=== PATIENT | female | born 1950 | race Asian ===

== ENCOUNTER 2018-08-04 07:24 | Emergency (ER) | payer OTHER ==
[~2018-08-04] VITALS: Ht 154.9 cm; Wt 58.2 kg
[~2018-08-04 07:24] MED LIST: IBUP-1542 PO
[2018-08-04 07:25] VITALS: BP 149/76; PULSE 80; RESP 18; Ht 154.9 cm; Wt 58.2 kg
[2018-08-04] MEDS ORDERED: NAPR-985 PO (08:39)
--- NOTE | 2018-08-04 10:57 | ERD ---
ER Documentation Chief Complaint Chief Complaint right foot pain s/p trip & fall on floor, worse pain w/weight bearing HPI 68-year-old female presenting with right foot pain after trip and fall earlier today at work. She has pain distal to her ankle and has pain with weightbearing activities. Has not taken any medications for pain. Denies other medical problems. NKDA. Surgical history denies. Social history denies ROS All systems reviewed and are negative except as per history of present illness. Medications Home Meds Active Scripts Naproxen* (Naprosyn*) 500 Mg Tablet, 500 MG PO BID PRN for PAIN AND/OR INFLAMMATION, #30 TAB Prov:DEE JOHNSON PA-C 08/04/18 Ibuprofen* (Motrin*) 600 Mg Tab, 600 MG PO Q6H PRN for PAIN AND OR ELEVATED TEMP, #30 TAB Prov:BEVERLEY AUSTIN NP 03/26/16 Allergies Allergies: Coded Allergies: No Known Drug Allergies (Verified Allergy, Unknown, 03/25/16) PMhx/Soc History of Surgery: Yes ( left breast mastectomy, hysterectomy, 3c/section , sbo) Hx Cardiac Disorders: Yes (htn, aortic valve replacement) Hx Alcohol Use: No Hx Substance Use: No Hx Tobacco Use: No FmHx Family History: No diabetes, No coronary disease, No other Physical Exam Vitals Vital Signs Date Temp Pulse Resp B/P (MAP) Pulse Ox O2 O2 Flow FiO2 Time Delivery Rate 08/04/18 97.9 80 18 149/76 100 07:25 (100) Physical Exam GENERAL: The patient is well-appearing, well-nourished, in no acute distress HEENT: Atraumatic. Conjunctivae are pink. Pupils equal, round, and reactive to light. There is no scleral icterus. Tympanic membranes clear bilaterally. Oropharynx clear. CHEST: Clear to auscultation bilaterally. There are no rales, wheezes or rhonchi. HEART: Regular rate and rhythm. No murmurs, clicks, rubs or gallops. EXTREMITIES: Tender to palpation to the base of the fourth metatarsals. No tenderness of the base the fifth metatarsal. Normal flexion and extension and strength 5 out of 5. NEUROLOGIC: Alert and oriented. Cranial nerves II through XII intact. Motor strength in all 4 extremities with 5 out of 5 strength. Sensation grossly intact. SKIN: Bruising noted distal to the right ankle. No lacerations or abrasions. Procedures/MDM DIAGNOSTIC IMAGING REPORT Patient: CALE HUTCHISON : 1950 Age: 68 Sex: F MR #: [id number] [facility] #: [id number] DOS: 08/04/18 0740 Ordering MD: TIM JOHNSON PA-C Location: FTE Room/Bed: PROCEDURE: XR foot CLINICAL INDICATION: Foot pain TECHNIQUE: AP, oblique and lateral views of the right foot COMPARISON: CR FOOT 03/25/2016 FINDINGS: Borderline osteopenia. No displaced fracture identified. Mild hallux valgus and hypertrophic change of the first MTP joint. Small calcaneal spur at the origin of the plantar fascia and small calcaneal enthesophyte at the insertion of Achilles tendon. No significant soft tissue swelling. Vascular calcification. IMPRESSION: 1. No displaced fracture identified. Repeat radiographs in 7-10 days or cross- sectional imaging may be obtained if there is persistent pain or concern for fracture. 2. Mild hallux valgus and hypertrophic change of the first MTP joint overall similar to prior exam. 3. Small calcaneal spur at the origin of the plantar fascia and small calcaneal enthesophyte at the insertion of Achilles tendon. ER Course: Ortho shoe and crutches given ED. MDM: 68-year-old female presenting with pain to foot. I have low suspicion for acute fracture dislocation. I have low suspicion for neuro deficit. Patient is discharged with strict ER precautions and told to follow-up with primary care within 1 to 2 days for close evaluation. Patient has no findings consistent with tendon or ligament rupture. Patient is told if symptoms change or worsen to return immediately to the ER. All questions answered at discharge Departure Diagnosis: Primary Impression: Contusion, foot Condition: Stable Patient Instructions: Contusion, Foot Referrals: COMMUNITY CLINICS YOU HAVE RECEIVED A MEDICAL SCREENING EXAM AND THE RESULTS INDICATE THAT YOU DO NOT HAVE A CONDITION THAT REQUIRES URGENT TREATMENT IN THE EMERGENCY DEPARTMENT. FURTHER EVALUATION AND TREATMENT OF YOUR CONDITION CAN WAIT UNTIL YOU ARE SEEN IN YOUR DOCTORS OFFICE WITHIN THE NEXT 1-2 DAYS. IT IS YOUR RESPONSIBILITY TO MAKE AN APPOINTMENT FOR FOLOW-UP CARE. IF YOU HAVE A PRIMARY DOCTOR --you should call your primary doctor and schedule an appointment IF YOU DO NOT HAVE A PRIMARY DOCTOR YOU CAN CALL OUR PHYSICIAN REFERRAL HOTLINE AT IF YOU CAN NOT AFFORD TO SEE A PHYSICIAN YOU CAN CHOSE FROM THE FOLLOWING [facility]MERLY [facility] [address] [facility] [address] [facility] [address] [facility] [address] [facility] [address] [facility] [facility]. [address] Additional Instructions: FOLLOW UP WITH YOUR PRIMARY CARE PHYSICIAN TOMORROW.Return to this facility if you are not improving as expected. DEE JOHNSON PA-C Aug 04, 2018 10:57
== END 2018-08-04 09:43 | disposition home or self-care (01) ==
LOC: FTE 07:24
DX: S90.31XA Contusion of right foot, initial encounter (principal); I10 Essential (primary) hypertension; W01.0XXA Fall on same level from slipping, tripping and stumbling without subsequent striking against object, initial encounter; Y92.89 Other specified places as the place of occurrence of the external cause
CPT/HCPCS: 73630

== ENCOUNTER 2018-09-26 05:08 | Inpatient (IN) | payer BC, OTHER ==
[~2018-09-26] VITALS: Ht 147.3 cm; Wt 58.7 kg
[~2018-09-26 05:08] MED LIST changes: +NAPR-985 PO
[2018-09-26] MEDS ORDERED: morphine 4 MG/ML VIAL IV STA (05:16)
[2018-09-26] MEDS ORDERED: SOD CHLORIDE 0.9% 1,000 ML IV STA (05:16)
[2018-09-26] MEDS ORDERED: ONDANSETRON 4 MG INJ IV STA (05:16)
--- NOTE | 2018-09-26 05:51 | ERD ---
ER Documentation Chief Complaint Chief Complaint bib code green for n/v and abd. pain hx of small HPI This is a 68-year-old female with remote history of surgeries who has recurrent small bowel obstructions treated nonsurgically. Patient describes several days of abdominal pain, nausea and vomiting. The abdominal pain is diffuse, 8 out of 10. Associated nonbloody nonbilious emesis. This feels exactly similar to small bowel obstructions in the past. The patient has refused surgeries as she states that she is very anxious about the surgeries. She states that these usually get better with not eating for 2 days. She does not wish to be hospitalized. ROS All systems reviewed and are negative except as per history of present illness. Medications Home Meds Active Scripts Naproxen* (Naprosyn*) 500 Mg Tablet, 500 MG PO BID PRN for PAIN AND/OR INFLAMMATION, #30 TAB Prov:DEE JOHNSON PA-C 08/04/18 Ibuprofen* (Motrin*) 600 Mg Tab, 600 MG PO Q6H PRN for PAIN AND OR ELEVATED TEMP, #30 TAB Prov:BEVERLEY AUSTIN NP 03/26/16 Allergies Allergies: Coded Allergies: No Known Drug Allergies (Verified Allergy, Unknown, 03/25/16) PMhx/Soc History of Surgery: Yes ( left breast mastectomy, hysterectomy, 3c/section , sbo) Hx Cardiac Disorders: Yes (htn, aortic valve replacement) Hx Miscellaneous Medical Probl: Yes (SBO) Hx Alcohol Use: No Hx Substance Use: No Hx Tobacco Use: No Smoking Status: Current every day smoker FmHx Family History: No diabetes Physical Exam Vitals Vital Signs Date Temp Pulse Resp B/P (MAP) Pulse Ox O2 O2 Flow FiO2 Time Delivery Rate 09/26/18 98.7 89 19 134/84 100 05:11 (101) Physical Exam General: Dehydrated and uncomfortable appearing Head: Normocephalic, atraumatic. Eyes: Pupils equally reactive, EOM intact ENT: Moist mucous membranes Neck: Supple, no lymphadenopathy Respiratory: Lungs clear bilaterally, no distress Cardiovascular: RRR, no murmurs, rubs, or gallops Abdominal: Soft, mild generalized tenderness without true peritonitis : Deferred MSK: No edema, no unilateral swelling, 5/5 strength Neurologic: Alert and oriented, moving all extremities, normal speech, no focal weakness, no cerebellar signs Skin: No rash Psych: Normal mood Result Diagram: 09/26/18 0548 Results 24 hrs Laboratory Tests Test 09/26/18 05:48 09/26/18 05:53 White Blood Count 11.9 10^3/ul Red Blood Count 5.61 10^6/ul Hemoglobin 12.6 g/dl Hematocrit 42.0 % Mean Corpuscular Volume 74.9 fl Mean Corpuscular Hemoglobin 22.5 pg Mean Corpuscular Hemoglobin Concent 30.0 g/dl Red Cell Distribution Width 13.7 % Platelet Count 233 10^3/UL Mean Platelet Volume 11.7 fl Immature Granulocytes % 0.600 % Neutrophils % 86.5 % Lymphocytes % 7.5 % Monocytes % 5.0 % Eosinophils % 0.1 % Basophils % 0.3 % Nucleated Red Blood Cells % 0.0 /100WBC Immature Granulocytes # 0.070 10^3/ul Neutrophils # 10.3 10^3/ul Lymphocytes # 0.9 10^3/ul Monocytes # 0.6 10^3/ul Eosinophils # 0.0 10^3/ul Basophils # 0.0 10^3/ul Nucleated Red Blood Cells # 0.0 10^3/ul POC Venous Lactate 1.9 mmol/L Current Medications Medications Dose Sig/Parviz Start Time Status Last (Trade) Ordered Route PRN Stop Time Admin Dose Reason Admin Sodium 1,000 ml @ Q1H STAT 09/26/18 DC 09/26/18 Chloride 1,000 mls/hr IV 05:16 05:38 09/26/18 06:15 Morphine 4 mg ONCE STAT 09/26/18 DC Sulfate IV 05:16 (morphine) 09/26/18 05:18 Ondansetron 4 mg ONCE STAT 09/26/18 DC 09/26/18 HCl (Zofran IV 05:16 05:37 Inj) 09/26/18 05:18 Procedures/MDM EKG, MONITORS, & DIAGNOSTIC IMAGING: CT abdomen and pelvis: PENDING LAB INTERPRETATION: I reviewed the laboratory testing and it shows no evidence of acute process MEDICAL DECISION MAKING: Clinical exam is very consistent with dehydration and likely small bowel obstruction. The patient is very adamant about not having surgery. The patient understands that this may require surgical intervention. Patient is refusing NG tube. CT imaging would be appropriate. ER COURSE: * Lactic acid is reassuring. IV fluids and pain medication provided * Patient CT and chemistry profile is pending at the time of signout. Patient endorsed oncoming provider to follow-up on CT imaging and disposition the patient. CONSULTATION: None DISPOSITION PLAN: Pending CT and reevaluation Departure Diagnosis: Primary Impression: Abdominal pain Abdominal location: generalized Qualified Codes: R10.84 - Generalized abdominal pain Condition: Stable FRANCISCO GONZALEZ MD Sep 26, 2018 05:51
[2018-09-26] MEDS ORDERED: ACETAMINOPHEN 325 MG TAB PO PRN ×2 (08:30→12:00)
[2018-09-26] MEDS ORDERED: ONDANSETRON 4 MG INJ IV PRN (08:30)
[2018-09-26] MEDS ORDERED: LOSA50TA14 PO (09:05)
[2018-09-26] MEDS ORDERED: ATOR20TA38 PO (09:06)
[2018-09-26] MEDS ORDERED: FURO40TA4 PO (09:06)
[2018-09-26] MEDS ORDERED: CORE20CR PO (09:06)
[2018-09-26 09:10] VITALS: BP 149/68; PULSE 95; RESP 16
[2018-09-26 10:56] VITALS: Ht 147.3 cm; Wt 58.7 kg
--- NOTE | 2018-09-26 11:37 | HP ---
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 #Partial SBO - Vomiting and diarrhea. May also be complicated by acute gastroenteritis - History of multiple abdominal surgeries including exp lap - Supportive care: IV fluids, zofran - Will start clear liquids today at patient's request. 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 She has had multiple abdominal surgeries including an exp lap and does have a history of partial SBO causing similar symptoms, usually resolves spontaneously. She was in her usual state of health until yesterday afternoon. She ate some guava and blackberries and a few hours later developed chills, followed by cramping mid abdominal pain, nausea, nonbloody vomiting, and liquid diarrhea. Symptoms occurred rapidly and nearly simultaneously. She says guava has triggered this for her in the past. Last time she had an episode like this was a few months ago, but she did not go to the hospital. In the ED she was afebrile, pulse 80, BP 134/84, breathing 96% on room air. Labs unremarkable. CT done showing clustered dilated loops of stool-filled small bow el with mild bowel wall thickening and transition point in the central/RLQ. ROS She denies fever, weight loss, night sweats, anorexia headache, dizziness, vision changes, dysphagia, chest pain/pressure/palpitations, dyspnea, constipation, hematemesis, melena/hematochezia, dysuria, hematuria. PMH/Family/Social Past Medical History Dyslipidemia Hypertension Breast cancer s/p mastectomy and radiation therapy Aortic stenosis (thought to be from radiation therapy) s/p bovine valve replacement. Psoriasis (uses CBD oil) Medications Current Medications Ondansetron HCl (Zofran Inj) 4 mg BRIDGE ORDER PRN IV NAUSEA/VOMITING; Start 09/26/18 at 08:30; Stop 09/27/18 at 08:29 Acetaminophen (Tylenol Tab) 650 mg ER BRIDGE PRN PO .MILD PAIN 1-3 OR TEMP; Start 09/26/18 at 08:30; Stop 09/27/18 at 08:29 Coded Allergies: No Known Drug Allergies (Verified Allergy, Unknown, 09/26/18) Past Surgical History Aortic valve replacement (bovine) L breast mastectomy C sectionx3 Hysterectomy followed by exp lap for severe bleeding. Social History Alcohol Use: none Smoking Status: Never smoker Drug Use: none Exam/Review of Systems Vital Signs Vitals Vital Signs Date Temp Pulse Resp B/P (MAP) Pulse Ox O2 O2 Flow FiO2 Time Delivery Rate 09/26/18 98.1 95 16 149/68 97 Room Air 09:10 (95) Exam Exam Gen: Ill appearing woman nauseated, actively vomiting dark brown fluid. Eyes: PERRL HEENT: Moist mucous membranes, clear oropharynx Neck: Supple, no lymphadenopathy Card: Regular rate and rhythm. Late systolic ejection murmurs Pulm: Clear to auscultation bilaterally Abd: Soft, nontender, nondistended. Normoactive bowel sounds. No hepatosplenomegaly. Ext: No cyanosis/clubbing/edema. Strong peripheral pulses. Skin: psoriasis plaques without scaling on extensors surface of arms and back. WILLIAN WADE MD Sep 26, 2018 11:37
[2018-09-26] MEDS ORDERED: CARvedilol (CR) 20 MG CAP PO SCH (12:00)
[2018-09-26] MEDS ORDERED: NACL 0.9% 3 ML SYG IV SCH (12:00)
[2018-09-26] MEDS: SOD CHLORIDE 0.45% 1,000 ML IV SCH ×2 (12:17→22:26)
[2018-09-26] MEDS: LOSARTAN 50 MG TAB PO SCH (12:18)
[2018-09-26] MEDS: ONDANSETRON 4 MG INJ IV PRN ×2 (12:44→18:54)
[2018-09-26 14:00] VITALS: BP 128/58; RESP 17
[2018-09-26 20:22] VITALS: BP 129/58; PULSE 97; RESP 18
[2018-09-26] MEDS: ATORVASTATIN 20 MG TAB PO SCH (21:00)
[2018-09-27 02:00] VITALS: BP 135/60; PULSE 95; RESP 18
[2018-09-27] MEDS: ONDANSETRON 4 MG INJ IV PRN (04:05)
[2018-09-27] MEDS: SOD CHLORIDE 0.45% 1,000 ML IV SCH ×2 (07:55→16:08)
[2018-09-27 08:14] VITALS: BP 134/61; PULSE 72; RESP 18
[2018-09-27] MEDS ORDERED: CARvedilol (CR) 10 MG CAP PO SCH (09:00)
[2018-09-27] MEDS: LOSARTAN 50 MG TAB PO SCH (09:06)
[2018-09-27] MEDS: ASPIRIN 81 MG TAB PO SCH (09:06)
[2018-09-27 15:24] VITALS: BP 129/61; PULSE 90; RESP 18
--- NOTE | 2018-09-27 19:15 | PN ---
Date/Time of Note Date/Time of Note DATE: 09/27/18 TIME: 19:13 Assessment/Plan VTE Prophylaxis Risk score (from Ns)>0 risk: 3 SCD applied (from Ns): Yes SCD contraindicated: low risk/ambulating Pharmacological prophylaxis: NA/contraindicated Pharm contraindication: low risk/ambulating Lines/Catheters IV [facility] Type (from [facility] Peripheral IV Assessment/Plan Hospital Course Assessment and plan 1. Partial small bowel obstruction, stable resolving. Tolerating liquids advance diet 2. Likely adhesions. History of 3 sections, hysterectomy, exploratory laparotomy for with bleeding. 3. Diverticulosis? 4. Aortic valve replacement status 5. Hypertwnsion X. Dyslipidemia 7. History of breast cancer radiation possible cardiomyopathy 8. Anemia stable observe Subjective: Feels better wants to eat and go home Objective: Vital signs stable Is not No pallor icterus Regular Clear Bowel sounds diminished but present irritated no rigidity rebound guarding No edema Result Diagram: 09/27/181 09/27/181 Results 24hrs Laboratory Tests Test 09/27/18 04:41 White Blood Count 8.2 # Red Blood Count 4.77 Hemoglobin 10.8 L Hematocrit 35.0 L Mean Corpuscular Volume 73.4 L Mean Corpuscular Hemoglobin 22.6 L Mean Corpuscular Hemoglobin Concent 30.9 L Red Cell Distribution Width 13.3 Platelet Count 234 Mean Platelet Volume 12.5 H Immature Granulocytes % 0.400 Neutrophils % 77.0 Lymphocytes % 14.1 L Monocytes % 8.3 Eosinophils % 0.0 Basophils % 0.2 Nucleated Red Blood Cells % 0.0 Immature Granulocytes # 0.030 Neutrophils # 6.3 Lymphocytes # 1.2 Monocytes # 0.7 Eosinophils # 0.0 Basophils # 0.0 Nucleated Red Blood Cells # 0.0 Sodium Level 142 Potassium Level 3.4 L Chloride Level 102 Carbon Dioxide Level 29 Anion Gap 11 Blood Urea Nitrogen 12 Creatinine 0.84 Est Glomerular Filtrat Rate mL/min > 60 Glucose Level 106 Hemoglobin A1c 5.3 Calcium Level 8.8 Phosphorus Level 3.7 Magnesium Level 1.9 Total Bilirubin 1.0 Direct Bilirubin 0.00 Indirect Bilirubin 1.0 Aspartate Amino Transf (AST/SGOT) 22 Alanine Aminotransferase (ALT/SGPT) 21 Alkaline Phosphatase 49 Total Protein 6.4 # Albumin 3.3 Globulin 3.10 Albumin/Globulin Ratio 1.06 Exam/Review of Systems Exam Vitals Vital Signs Date Temp Pulse Resp B/P (MAP) Pulse Ox O2 O2 Flow FiO2 Time Delivery Rate 09/27/18 98.6 90 18 129/61 98 15:24 (83) 09/27/18 Room Air 02:00 Intake and Output 09/26/18 09/26/18 09/27/18 1515:00 23:00 07:00 IntakeIntake Total 300 ml 1100 ml 800 ml BalanceBalance 300 ml 1100 ml 800 ml Results Results 24hrs Laboratory Tests Test 09/27/18 04:41 White Blood Count 8.2 # Red Blood Count 4.77 Hemoglobin 10.8 L Hematocrit 35.0 L Mean Corpuscular Volume 73.4 L Mean Corpuscular Hemoglobin 22.6 L Mean Corpuscular Hemoglobin Concent 30.9 L Red Cell Distribution Width 13.3 Platelet Count 234 Mean Platelet Volume 12.5 H Immature Granulocytes % 0.400 Neutrophils % 77.0 Lymphocytes % 14.1 L Monocytes % 8.3 Eosinophils % 0.0 Basophils % 0.2 Nucleated Red Blood Cells % 0.0 Immature Granulocytes # 0.030 Neutrophils # 6.3 Lymphocytes # 1.2 Monocytes # 0.7 Eosinophils # 0.0 Basophils # 0.0 Nucleated Red Blood Cells # 0.0 Sodium Level 142 Potassium Level 3.4 L Chloride Level 102 Carbon Dioxide Level 29 Anion Gap 11 Blood Urea Nitrogen 12 Creatinine 0.84 Est Glomerular Filtrat Rate mL/min > 60 Glucose Level 106 Hemoglobin A1c 5.3 Calcium Level 8.8 Phosphorus Level 3.7 Magnesium Level 1.9 Total Bilirubin 1.0 Direct Bilirubin 0.00 Indirect Bilirubin 1.0 Aspartate Amino Transf (AST/SGOT) 22 Alanine Aminotransferase (ALT/SGPT) 21 Alkaline Phosphatase 49 Total Protein 6.4 # Albumin 3.3 Globulin 3.10 Albumin/Globulin Ratio 1.06 Medications Medication Current Medications Sodium Chloride 1,000 ml @ 100 mls/hr Q10H IV Last administered on 09/26/18at 22:26; Admin Dose 100 MLS/HR; Start 09/26/18 at 11:55 IV Flush (NS 3 ml) 3 ml PER PROTOCOL IV ; Start 09/26/18 at 12:00 Ondansetron HCl (Zofran Inj) 4 mg Q6H PRN IV NAUSEA/VOMITING Last administered on 09/27/18at 04:05; Admin Dose 4 MG; Start 09/26/18 at 12:00 Acetaminophen (Tylenol Tab) 650 mg Q6H PRN PO .PAIN 1-3 OR TEMP; Start 09/26/18 at 12:00 Atorvastatin Calcium (Lipitor) 10 mg QHS PO ; Start 09/26/18 at 21:00 Losartan Potassium (Cozaar) 50 mg DAILY PO Last administered on 09/27/18at 09:06; Admin Dose 50 MG; Start 09/26/18 at 12:00 Aspirin (Aspirin) 81 mg DAILY PO Last administered on 09/27/18at 09:06; Admin Dose 81 MG; Start 09/27/18 at 09:00 Carvedilol (Coreg) 12.5 mg BID PO ; Start 09/27/18 at 09:30 CAITLYN LAN MD Sep 27, 2018 19:15
[2018-09-27] MEDS ORDERED: DOCUSATE SODIUM 100 MG CAP PO PRN (19:30)
[2018-09-27 20:00] VITALS: BP 135/61; PULSE 82; RESP 19
[2018-09-27] MEDS: ATORVASTATIN 20 MG TAB PO SCH (20:39)
[2018-09-28 02:00] VITALS: BP 120/56; PULSE 88; RESP 19
[2018-09-28 08:07] VITALS: BP 136/63; RESP 17
[2018-09-28] MEDS: ASPIRIN 81 MG TAB PO SCH (08:53)
[2018-09-28] MEDS: LOSARTAN 50 MG TAB PO SCH (08:54)
[2018-09-28] MEDS ORDERED: FAMOTIDINE 20 MG TAB PO SCH (09:00)
--- NOTE | 2018-09-28 11:36 | PDOCDIS ---
Discharge Instructions CONDITION [id number] Patient Condition: [id number] Stable HOME CARE INSTRUCTIONS: [id number] Diet Instructions: [id number] Low Fat /Cholesterol [id number] Special Diet: [id number] stay hydrated; avoid constipation ACTIVITY: [id number] Activity Restrictions: [id number] Slowly Increase Activity Avoid heavy lifting FOLLOW UP/APPOINTMENTS Follow-up Plan appt primary 1wk CAITLYN LAN MD Sep 28, 2018 11:36
[2018-09-28] MEDS ORDERED: DOCU-144 PO (11:37)
[2018-09-28] MEDS ORDERED: ASPI-831 PO (11:37)
[2018-09-28] MEDS ORDERED: ACET325T33 PO (11:37)
[2018-09-28 15:40] VITALS: BP 129/58; PULSE 87; RESP 17
--- NOTE | 2018-10-04 23:15 | DS ---
Date/Time of Note Date/Time of Note DATE: 10/04/18 TIME: 23:06 Discharge Summary Admission/Discharge Info Admit Date/Time Sep 26, 2018 at 08:14 Discharge Date/Time Sep 28, 2018 at 16:15 Discharge Diagnosis 1. Partial small bowel obstruction 2. Suspect adhesions. 3. Suspect Diverticulosis 4. hx Aortic valve replacement 5. Hypertension X. Dyslipidemia 7. History of breast cancer s/p radiation 8. Anemia Patient Condition: Stable Hospital Course This is a 68 year old female with history of HLD, HTN, Breast CA s/p mastectomy & radiation therapy, aortic stenosis (thought to be from radiation therapy) s/p bovine valve replacement, multiple abdominal surgeries who came to the hospital due to reports of abdominal pain, with nausea and nonbloody emesis. Patient was initially NPO and we did advance her diet once her pain started to resolve. We did advance her diet as tolerated. She was otherwise optimzed medically with antihypertensives for high blood pressure and statin for her HLD. There was evidence of diverticulosis on abdominal imaging without diverticulitis. During her course of stay she did improve. The plan of care was discussed with the patient and patient did verbalize her understanding. On the day of discharge, maddie jerry was in stable condition. Discussed POC with Dr. Cheema [facility] Active Scripts Aspirin (Aspirin) 81 Mg Chew, 81 MG PO DAILY for 30 Days, TAB Prov:CAITLYN LAN MD 09/28/18 Docusate Sodium* (Colace*) 100 Mg Capsule, 100 MG PO BID PRN for CONSTIPATION for 1 Day, CAP Prov:CAITLYN LAN MD 09/28/18 Acetaminophen* (Tylenol*) 325 Mg Tablet, 650 MG PO Q6H PRN for .PAIN 1-3 OR TEMP for 1 Day, TAB Prov:CAITLYN LAN MD 09/28/18 Reported Medications Atorvastatin Calcium* (Atorvastatin Calcium*) 20 Mg Tablet, 20 MG PO QHS, #30 TA B 09/26/18 Carvedilol* (Coreg CR*) 20 Mg Capsr, 20 MG PO DAILY, #30 CAP 09/26/18 Losartan Potassium* (Losartan Potassium*) 50 Mg Tablet, 50 MG PO DAILY, TAB 09/26/18 Discontinued Reported Medications Furosemide* (Furosemide*) 40 Mg Tablet, 40 MG PO DAILY, TAB 09/26/18 Follow-up Plan appt primary 1wk Primary Care Provider Care Physician No Primary Time spent on discharge: > 30 minutes KATHI WARD NP Oct 04, 2018 23:15
== END 2018-09-28 16:15 | disposition home or self-care (01) | DRG 390 ==
LOC: E/R 05:08 → SUATTDRO 08:13 → PP2 08:14
PROVIDERS: ADMIT Internal Medicine; ATTEND Internal Medicine
DX: K56.600 Partial intestinal obstruction, unspecified as to cause (principal); E86.0 Dehydration; I10 Essential (primary) hypertension; Z79.82 Long term (current) use of aspirin; Z95.4 Presence of other heart-valve replacement; E78.5 Hyperlipidemia, unspecified; K66.0 Peritoneal adhesions (postprocedural) (postinfection); Z85.3 Personal history of malignant neoplasm of breast; K57.90 Diverticulosis of intestine, part unspecified, without perforation or abscess without bleeding
CPT/HCPCS: 36415; 74176; 80053; 83036; 83605; 83690; 83735; 84100; 85025; 85610; 96374; J2270; J2405; J7030